=== PATIENT | female | born 2000 | race Caucasian/White ===

== ENCOUNTER 2022-09-25 23:23 | Emergency (ER) | payer OTHER, SELFPAY ==
[2022-09-25] MEDS: 0.9 % SODIUM CHLORIDE 1000 ml 1,000 ML IV (23:40)
[2022-09-25] MEDS: ONDANSETRON 2 MG/ML inj 4 MG IVP (23:40)
[2022-09-25 23:47] VITALS: BP 120/78; PULSE 122; RESP 20; TEMP 36.6; O2SAT 99; BMI 20.3
--- NOTE | 2022-09-25 23:53 | ED_ITS ---
HPI - Nausea/Vomiting/Diarrhea General Chief complaint: Nausea/Vomiting Stated complaint: vomiting/sore throat/chills/hot flashes Time Seen by Provider: 09/25/22 23:33 History of Present Illness HPI Narrative: Pt is a 21 year old who presents with several days of pharyngitis and nonprodu ctive cough. She has had low grade fever and has developed nausea, vomiting and diarrhea over the last several hours. Pt states that she is not and feels like she is up to date on her vaccinations. No other symptoms such as headache, abd pain, dysuria, rash or neck stiffness. Pt has had no sick contacts. Related Data Home Medications Medication Instructions Recorded Confirmed No Known Home Medications 09/25/22 09/25/22 Allergies Allergy/AdvReac Type Severity Reaction Status Date / Time No Known Drug Allergies Allergy Verified 09/25/22 23:50 Review of Systems Status of ROS: Reports: 10 or more systems reviewed and unremarkable except as noted in History and below [facility] Medical History (Updated 09/26/22 @ 00:40 by Zackery Verma MD) Anxiety Surgical History No significant past surgical history Social History Smoking Status: Never smoker Do you use any of these nicotine containing products: None Second hand tobacco smoke exposure: No How often do you have a drink containing alcohol: never How often do you have six or more drinks on one occasion: Never AUDIT-C Alcohol total score: 0 Non-prescribed substance use: denies use Exam Narrative: Exam Narrative: EXAM GENERAL: Patient appears comfortable and well. EYES: No scleral icterus. ENT: Tympanic membranes and oropharynx normal. THYROID: no thyroid nodules or thyromegaly. LYMPH: No supraclavicular or cervical lymphadenopathy. SKIN: Visible skin seen during exam normal or with benign process only. EXT: No dependent lower extremity pedal edema. HEART: Mild tachycardia RR no rubs clicks or murmurs. LUNGS: Clear to auscultation bilaterally with no crackles or wheezes. ABD: Soft, non tender, non distended. PSYCH: Good eye contact, speech is not pressured. Const: Vital Signs, click to edit/add: Vital Signs - 24 hr 09/25/22 23:47 09/26/22 00:01 09/25/22 23:56 Temperature 97.8 F Pulse Rate 115 H Pulse Rate [Right Pulse Oximeter] 122 H Respiratory Rate 20 18 Blood Pressure 99/68 Blood Pressure [Ri ght Upper Arm] 120/78 Pulse Oximetry 99 99 100 Oxygen Delivery Me thod Room Air 09/26/22 00:00 09/26/22 00:01 Temperature Pulse Rate 115 H 114 H Pulse Rate [Right Pulse Oximeter] Respiratory Rate 18 Blood Pressure 118/78 110/69 Blood Pressure [Ri ght Upper Arm] Pulse Oximetry 99 100 Oxygen Delivery Me thod Course Course Hospital Course: Pt seen and examined. Labs collected. IV saline started. Zofran 4 mg IV given. Reevaluation(s) Reevaluation #1: Labs reviewed. Lactate normal. Anion gap is 13. Rest of labs reassuring except pt tests positive for Influenza A. Pt treated with Normal saline 2 liters and Zofran 4 mg IV. Pt will be treated with Tamiflu 75 mg BID for 5 days with PCP follow up prn. Time: 00:35 Vital Signs Vital signs: Initial Vital Signs Temperature 97.8 F 09/25/22 23:47 Temperature Source Temporal Artery Scan 09/25/22 23:47 Pulse Rate 122 H 09/25/22 23:47 Respiratory Rate 20 09/25/22 23:47 Blood Pressure 120/78 09/25/22 23:47 Blood Pressure Mean 92 09/25/22 23:47 Blood Pressure Position Sitting 09/25/22 23:47 Pulse Oximetry 99 09/25/22 23:47 Oxygen Delivery Method 09/25/22 23:47 Vital Signs Temperature 97.8 F 09/25/22 23:47 Pulse Rate 122 H 09/25/22 23:47 Respiratory Rate 20 09/25/22 23:47 Blood Pressure 120/78 09/25/22 23:47 Pulse Oximetry 99 09/25/22 23:47 Oxygen Delivery Method 09/25/22 23:47 Temperature 97.8 F 09/25/22 23:47 Pulse Rate 114 H 09/26/22 00:01 Respiratory Rate 18 09/26/22 00:00 Blood Pressure 110/69 09/26/22 00:01 Pulse Oximetry 100 09/26/22 00:01 Oxygen Delivery Method 09/25/22 23:47 MDM - Nausea/Vomiting/Diarrhea MDM Narrative Medical decision making narrative: Pt presents with numerous symptoms consistent with viral syndrome. She is treated with Zofran and Normal Saline. Labs reviewed. Pt tests positive for Influenza A. She will be treated with Tamiflu, Zofran, Rest, Fluids, Tylenol, Ibuprofen. Differential Diagnosis Differential diagnosis: Likely traveler's diarrhea, food poisoning, gastroenteritis, clostridium difficile infection, drug-induced nausea and vomiting and dehydration Medical Records Attestation: I reviewed the patient's medical records. Lab Data Labs: Lab Results 09/25/22 09/25/22 09/25/22 Range/Units 23:30 23:30 23:40 WBC (4.50-11.00) K/uL RBC (4.00-5.20) m/uL Hgb (12.0-16.0) gm/dL Hct (33.0-51.0) % MCV (80-100) fL MCH (26-34) pg MCHC (32-36) gm/dL RDW Coeff of Jasmin (11.5-15.5) % Plt Count (140-440) K/uL Neut % (Auto) (42.0-72.0) % Lymph % (Auto) (20-44) % [place] % (Auto) (0.0-11.0) % Eos % (Auto) (0.0-7.0) % Baso % (Auto) (0.0-3.0) % Neut # (Auto) (1.7-7.0) K/uL Lymph # (Auto) (0.90-2.90) K/uL [place] # (Auto) (0.00-0.90) K/UL Eos # (Auto) (0.00-0.50) K/uL Baso # (Auto) (0.00-0.30) K/uL Abs Immat Gran (auto) (0.00-0.30) K/uL Imm/Tot Granulo (auto) % Sodium (135-149) mmol/L Potassium (3.6-5.1) mmol/L Chloride (96-114) mmol/L Carbon Dioxide (20-32) mmol/L BUN (5-24) mg/dL Creatinine (0.6-1.2) mg/dL Estimated Creat Clear Estimated GFR ml/min Glucose (60-115) mg/dL Lactate 1.6 (0.5-1.9) mmol/L Calcium (8.7-10.8) mg/dL SARS-CoV-2 (PCR) Negative SARS-CoV-2 (Negative) Influenza Type A (PCR) POSITIVE PCR FLU A A (Negative) Influenza Type B (PCR) Negative PCR FLU B (Negative) RSV (PCR) Negative PCR RSV (Negative) Group A Strep DNA NOT DETECTED (Not Detectd) 09/25/22 09/25/22 Range/Units 23:50 23:50 WBC 7.79 (4.50-11.00) K/uL RBC 4.84 (4.00-5.20) m/uL Hgb 14.6 (12.0-16.0) gm/dL Hct 41.3 (33.0-51.0) % MCV 85 (80-100) fL MCH 30 (26-34) pg MCHC 35 (32-36) gm/dL RDW Coeff of Jasmin 11.6 (11.5-15.5) % Plt Count 209 (140-440) K/uL Neut % (Auto) 81.4 H (42.0-72.0) % Lymph % (Auto) 10.8 L (20-44) % [place] % (Auto) 7.2 (0.0-11.0) % Eos % (Auto) 0.0 (0.0-7.0) % Baso % (Auto) 0.1 (0.0-3.0) % Neut # (Auto) 6.30 (1.7-7.0) K/uL Lymph # (Auto) 0.80 L (0.90-2.90) K/uL [place] # (Auto) 0.60 (0.00-0.90) K/UL Eos # (Auto) 0.00 (0.00-0.50) K/uL Baso # (Auto) 0.01 (0.00-0.30) K/uL Abs Immat Gran (auto) 0.04 (0.00-0.30) K/uL Imm/Tot Granulo (auto) 0.5 % Sodium 139 (135-149) mmol/L Potassium 4.1 (3.6-5.1) mmol/L Chloride 110 (96-114) mmol/L Carbon Dioxide 16 L (20-32) mmol/L BUN 14 (5-24) mg/dL Creatinine 0.5 L (0.6-1.2) mg/dL Estimated Creat Clear 163.28 Estimated GFR 138 ml/min Glucose 125 H (60-115) mg/dL Lactate (0.5-1.9) mmol/L Calcium 9.2 (8.7-10.8) mg/dL SARS-CoV-2 (PCR) (Negative) Influenza Type A (PCR) (Negative) Influenza Type B (PCR) (Negative) RSV (PCR) (Negative) Group A Strep DNA (Not Detectd) Discharge Plan Discharge Clinical Impression: Influenza A Patient Disposition: Home, Self-Care Condition: Stable Instructions: Influenza (ED) Additional Instructions: Tylenol Motrin Rest Fluids Tamiflu as directed Activity Level: No Restrictions Discharge Diet: Regular Prescriptions: No Action No Known Home Medications Follow Up/Referrals: Brodie Cassidy MD [Primary Care Provider] - Stand Alone Forms: [employer] Info Instructions
[2022-09-25 23:56] VITALS: BP 99/68; PULSE 115; RESP 18; O2SAT 100
[2022-09-26] VITALS: BP 118/78; PULSE 115; RESP 18; O2SAT 99
[2022-09-26] MEDS: 0.9 % SODIUM CHLORIDE 1000 ml 1,000 ML IV
[2022-09-26 00:01] VITALS: BP 110/69; PULSE 114; O2SAT 100; O2SAT 99
[2022-09-26 00:05] LABS: Basophils Absolute Auto 0.01 K/uL (0.00-0.30); Basophils Percent Auto 0.1 % (0.0-3.0); Hematocrit 41.3 % (33.0-51.0); Hemoglobin* 14.6 gm/dL (12.0-16.0); Immature Granulocytes Abs Auto 0.04 K/uL (0.00-0.30); Immature Granulocytes Pct Auto 0.5 %; Lymphocytes Percent Auto 10.8 % (20-44); Mean Corpuscular HGB Conc 35 gm/dL (32-36); Mean Corpuscular Hemoglobin 30 pg (26-34); Mean Corpuscular Volume 85 fL (80-100); Monocytes Percent Auto 7.2 % (0.0-11.0); Neutrophils Percent Auto 81.4 % (42.0-72.0); Platelet Count* 209 K/uL (140-440); RDW Coefficient of Variation % 11.6 % (11.5-15.5); Red Blood Count 4.84 m/uL (4.00-5.20); White Blood Count* 7.79 K/uL (4.50-11.00)
[2022-09-26 00:05] LABS: Strep A DNA Probe* NOT DETECTED (Not Detectd)
[2022-09-26 00:06] LABS: Chloride* 110 mmol/L (96-114)
[2022-09-26 00:07] LABS: Potassium* 4.1 mmol/L (3.6-5.1); Sodium* 139 mmol/L (135-149)
[2022-09-26 00:08] LABS: Slide Review Reflex No
[2022-09-26 00:09] LABS: Carbon Dioxide* 16 mmol/L (20-32); Creatinine* 0.5 mg/dL (0.6-1.2); Est. Creatinine Clearance* 163.28; Estimated Glomerular Filt Rate 138 ml/min
[2022-09-26 00:10] LABS: Blood Urea Nitrogen* 14 mg/dL (5-24); Calcium* 9.2 mg/dL (8.7-10.8); Glucose* 125 mg/dL (60-115)
[2022-09-26 00:11] LABS: Lactate* 1.6 mmol/L (0.5-1.9)
[2022-09-26 00:24] LABS: PCR FLU A POSITIVE PCR FLU A (Negative); PCR FLU B Negative PCR FLU B (Negative); PCR RSV Negative PCR RSV (Negative)
[2022-09-26 00:28] LABS: SARS PCR* Negative SARS-CoV-2 (Negative)
[2022-09-26 00:32] VITALS: BP 102/57; PULSE 117; RESP 18; O2SAT 100
[2022-09-26 00:53] VITALS: BP 120/78; PULSE 122; RESP 18; TEMP 36.6
== END 2022-09-26 00:59 | disposition home or self-care (01) ==
LOC: ED 09-26 00:48
PROVIDERS: Emergency Provider Internal Medicine; PCP Family Medicine
DX: J09.X2 Influenza due to identified novel influenza A virus with other respiratory manifestations (principal)
CPT/HCPCS: 36415; 80048; 83605; 85025; 87502; 87634; 87635; 87651; 94761; 96374; 99283; 99284; J2405; J7030

== ENCOUNTER 2024-01-08 09:03 | Outpatient (CLI) | payer OTHER, SELFPAY | END 2024-01-08 09:04 | disposition home or self-care (01) | LOC: NFLDREF 01-11 09:13 | PROVIDERS: PCP Family Medicine; Referring Provider Family Medicine; Visit Provider Family Medicine | DX: Z13.9 Encounter for screening, unspecified (principal); Z13.6 Encounter for screening for cardiovascular disorders | CPT/HCPCS: 80053; 80061 ==

== ENCOUNTER 2024-01-11 13:10 | Outpatient (CLI) | payer OTHER, SELFPAY | END 2024-01-11 13:11 | disposition home or self-care (01) | LOC: NFLDREF 13:11 | PROVIDERS: PCP Family Medicine; Visit Provider Family Medicine | DX: Z00.00 Encounter for general adult medical examination without abnormal findings (principal); Z11.3 Encounter for screening for infections with a predominantly sexual mode of transmission | CPT/HCPCS: 87491; 87591 ==

== ENCOUNTER 2024-01-15 15:04 | Outpatient (CLI) | payer OTHER, SELFPAY | END 2024-01-15 15:05 | disposition home or self-care (01) | LOC: NFLDREF 15:06 | PROVIDERS: PCP Family Medicine; Visit Provider Obstetrics & Gynecology | DX: R30.0 Dysuria (principal) | CPT/HCPCS: 87086 ==

== ENCOUNTER 2024-03-24 07:19 | Outpatient (CLI) | payer OTHER, SELFPAY ==
--- NOTE | 2024-03-24 07:15 | CRLHL7_ITS ---
For Patients: As a result of the Century Cures Act, medical imaging exams and procedure reports are released immediately into your electronic medical record. You may view this report before your referring provider. If you have questions, please contact your health care provider. CLINICAL HISTORY: PELVIC AND PERINEAL PAIN TECHNIQUE: 2D tripp scale ultrasound. In addition color Doppler and spectral Doppler analysis was performed of the pelvis using a transvaginal approach. FINDINGS: The myometrium has a normal uniform echotexture. The uterus measures 8.0 x 2.9 x 4.3 cm. The endometrial lining appears normal and measures 3 mm in thickness. The right ovary measures 4.3 x 1.9 x 3.6 cm in size and the left ovary measures 4.9 x 1.7 x 3.3 cm. The ovaries demonstrate normal arterial and venous blood flow on color Doppler and spectral Doppler analysis. There are no suspicious fluid collections within the cul-de-sac. IMPRESSION: Normal pelvic ultrasound. No adnexal mass or excess pelvic free fluid. No ovarian torsion. Dictated by Ramiro Velazco MD @ 03/24/2024 9:45:46 AM (Electronically Signed)
== END 2024-03-24 07:20 | disposition home or self-care (01) ==
LOC: US 07:22
PROVIDERS: PCP Family Medicine; Visit Provider Obstetrics & Gynecology
DX: R10.2 Pelvic and perineal pain (principal)
CPT/HCPCS: 76830; 76856; 93976

== ENCOUNTER 2024-10-27 17:34 | Outpatient (CLI) | payer OTHER, SELFPAY | END 2024-10-27 17:35 | disposition home or self-care (01) | LOC: NFLDUCREF 17:38 | PROVIDERS: PCP Family Medicine; Visit Provider Nurse Practitioner | DX: N30.00 Acute cystitis without hematuria (principal); R10.9 Unspecified abdominal pain | CPT/HCPCS: 87086; 87186 ==